=== PATIENT | female | born 1995 | race African-American/Black ===

== ENCOUNTER 2017-08-25 21:39 | Emergency (ER) | payer MEDICAID, OTHER ==
[~2017-08-25] VITALS: Ht 154.9 cm; Wt 66.0 kg
[2017-08-25] MEDS ORDERED: IBUPROFEN 600MG TABLET PO ONE (23:45)
[2017-08-26 01:10] VITALS: BP 111/72
== END 2017-08-26 01:10 | disposition home or self-care (01) ==
LOC: ER 22:13
DX: R07.9 Chest pain, unspecified (principal); R45.851 Suicidal ideations; M54.5 Low back pain
CPT/HCPCS: 71045; 81025; 93005; 99284